=== PATIENT | male | born 1970 | race Two or more races ===

== ENCOUNTER 2018-01-28 14:18 | Outpatient (CLI) | payer SELFPAY | END 2018-01-28 23:59 | disposition home or self-care (01) | LOC: WOU 14:18 | PROVIDERS: ATTEND Surgery | DX: T81.31XA Disruption of external operation (surgical) wound, not elsewhere classified, initial encounter (principal); E43 Unspecified severe protein-calorie malnutrition; Z68.20 Body mass index [BMI] 20.0-20.9, adult; K42.9 Umbilical hernia without obstruction or gangrene; Z85.51 Personal history of malignant neoplasm of bladder; Z87.891 Personal history of nicotine dependence; Z90.5 Acquired absence of kidney; Z79.899 Other long term (current) drug therapy | CPT/HCPCS: A6402; G0463; Z7610 ==